=== PATIENT | female | born 1980 | race African-American/Black ===

== ENCOUNTER 2016-07-15 08:38 | Emergency (ER) | payer MEDICAID ==
[~2016-07-15] VITALS: Ht 160 cm; Wt 61.2 kg
[~2016-07-15 08:38] MED LIST: ALBUTEROL SULF8.5 GM INH; IBUPROFEN600 MG ORAL; VENTOLIN HFA18 GM INH; ZANTAC150 MG ORAL
[2016-07-15] MEDS ORDERED: Albuterol ud Inhalation HHN ONE (09:30)
[2016-07-15 10:14] VITALS: BP 117/82
[2016-07-15 10:40] LABS: APPEARANCE,URINE CLEAR; KETONES,URINE NEGATIVE (NEGATIVE); LEUKOCYTE ESTERASE ,URINE 1+ (NEGATIVE); NITRITE,URINE NEGATIVE (NEGATIVE); PH,URINE 6 (4.5-8.0); PROTEIN,URINE 2+ (NEGATIVE); UROBILINOGEN,URINE NORMAL MG/DL (0.0-1.0)
[2016-07-15 10:58] LABS: BACTERIA,URINE FEW /HPF; MUCUS,URINE FEW /LPF (NONE/OCC); RBC,URINE 0-2 /HPF (0 - 2); SQUAMOUS EPITHELIAL CELL,UR FEW /LPF (NONE/OCC)
--- NOTE | 2016-07-15 11:45 | Emergency Room Report ---
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 She states that she has been coughing and congested for the past week. She has been using her inhaler. She also states that she has a history of a mass in her uterus that was diagnosed at another hospital. She has not had this evaluated since moving into [place] at the end of last year. She is worried she has a urinary tract infection. She denies any symptoms with her mass in her abdomen. She has no other complaints. Allergies: Coded Allergies: No Known Allergies (Unverified , 04/10/16) Patient History Past Medical History: see triage record, asthma, GERD, other - Uterine mass Social History: Reports: smoking, Denies: alcohol use, drug use Last Menstrual Period: 07/13/16 Reviewed Nursing Documentation: PMH: Agreed, PSxH: Agreed Nursing Documentation-PMH Past Medical History: No History, Except For Hx Asthma: Yes Hx Gastrointestinal Problems: Yes - GERD Review of Systems All Other Systems: negative except mentioned in HPI Physical Exam Vital Signs Date Time Temp Pulse Resp B/P Pulse Ox O2 Delivery O2 Flow Rate FiO2 07/15/16 08:50 97.5 73 16 111/78 100 Room Air 07/15/16 09:51 21 Sp02 EP Interpretation: reviewed, normal General Appearance: no apparent distress, alert, GCS 15, non-toxic Head: normocephalic, atraumatic Eyes: bilateral eye PERRL, bilateral eye normal inspection ENT: hearing grossly normal, normal pharynx, no angioedema, normal voice Neck: full range of motion, supple/symm/no masses Respiratory: chest non-tender, lungs clear, normal breath sounds, speaking full sentences Cardiovascular #1: regular rate, rhythm, no edema Gastrointestinal: normal bowel sounds, non tender, soft, non-distended, no guarding, no rebound Rectal: deferred Musculoskeletal: back normal, gait/station normal, normal range of motion, non- tender, calf tenderness Neurologic: alert, oriented x3, responsive, motor strength/tone normal, sensory intact, speech normal Psychiatric: judgement/insight normal, memory normal, mood/affect normal, no suicidal/homicidal ideation Skin: normal color, no rash, warm/dry, well hydrated Medical Decision Making Diagnostic Impression: Primary Impression: Upper respiratory infection ER Course This patient has a clinical presentation with upper respiratory tract infection. The evaluation was very reassuring with a normal lung exam, no respiratory distress, normal pulse oximetry. I am not concerned for pneumonia in this patient. Chest x-ray shows no evidence of opacification. This is most likely viral and will not need antibiotic therapy. I will treat supportively with cough suppressants and the patient is requesting albuterol refill. The patient has a history of asthma and so placed her on a course of steroids. No emergency medical condition was identified. The patient also has a known uterine mass. I did offer to do an ultrasound, however the emergency department is incredibly busy today and it was delayed and so the patient decided to leave without obtaining ultrasound. I did press on the patient the importance of getting followup for this mass. She indicated understanding and intention to do so. This is a chronic condition and can be followed up by the primary care physician. Patient is given return precautions and followup instructions. Labs Test 07/15/16 10:05 Urine Color Pale yellow Urine Appearance Clear Urine pH 6 (4.5-8.0) Urine Specific [place] 1.020 (1.005-1.035) Urine Protein 2+ (NEGATIVE) Urine Glucose (UA) Negative (NEGATIVE) Urine Ketones Negative (NEGATIVE) Urine Occult Blood Negative (NEGATIVE) Urine Nitrite Negative (NEGATIVE) Urine Bilirubin Negative (NEGATIVE) Urine Urobilinogen Normal MG/DL (0.0-1.0) Urine Leukocyte Esterase 1+ (NEGATIVE) Urine RBC 0-2 /HPF (0 - 2) Urine WBC 2-4 /HPF (0 - 2) Urine Squamous Epithelial Cells Few /LPF (NONE/OCC) Urine Bacteria Few /HPF (NONE) Urine Mucus Few /LPF (NONE/OCC) Chest X-Ray Diagnostic Results EP Interpretation: Yes Findings: no consolidation, no effusion, no pneumothorax, no acute cardiopulmonary disease Number of Views: 1 Last Vital Signs Date Time Temp Pulse Resp B/P Pulse Ox O2 Delivery O2 Flow Rate FiO2 07/15/16 10:14 98.2 72 18 117/82 100 Room Air 07/15/16 09:55 21 Status: improved Disposition: HOME, SELF-CARE Condition: Improved Referrals: NOT CHOSEN IPA/,REFERRING (PCP) Patient Instructions: Upper Respiratory Infection, Adult ONEIL CHEATHAM D.O. Jul 15, 2016 11:45
[2016-07-15] MEDS ORDERED: ALBUTEROL SULF8.5 GM INH (12:01)
[2016-07-15] MEDS ORDERED: GUAIFENESIN-CO118 M1 ORAL (12:01)
[2016-07-15] MEDS ORDERED: PREDNISONE20 MG ORAL (12:01)
[2016-07-15 12:11] VITALS: BP 123/77
--- NOTE | 2016-07-15 12:29 | Diagnostic Imaging Report ---
Indication: COUGH Technique: One view of the chest Comparison: none Findings: Lungs and pleural spaces are clear. Heart size is normal. Impression: No acute process
== END 2016-07-15 12:11 | disposition home or self-care (01) ==
LOC: EMR 09:32
DX: J06.9 Acute upper respiratory infection, unspecified (principal); J45.909 Unspecified asthma, uncomplicated; K21.9 Gastro-esophageal reflux disease without esophagitis; F17.200 Nicotine dependence, unspecified, uncomplicated
CPT/HCPCS: 71010; 81001; 94640; 94664; 99284